=== PATIENT | male | born 1950 | race Caucasian/White ===

== ENCOUNTER 2020-07-02 14:25 | Emergency (ER) | payer MEDICARE, OTHER ==
[2020-07-02 14:34] VITALS: BP 166/97
--- NOTE | 2020-07-02 14:41 | ED Physician Documentation ---
PD HPI UPPER EXT INJURY - Stated complaint Stated Complaint: GLF - Chief complaint Chief Complaint: Ext Problem - History obtained from History obtained from: Patient (69-year-old gentleman had a trip and fall and landed on his right knee and right wrist. The knee is mildly painful but the wrist is more painful. No other injuries. Tetanus is up-to-date.) Review of Systems Constitutional: reports: Reviewed and negative Eyes: reports: Reviewed and negative Ears: reports: Reviewed and negative Nose: reports: Reviewed and negative Musculoskeletal: denies: Neck pain, Back pain Neurologic: denies: Headache, Head injury, LOC PD PAST MEDICAL HISTORY - Past Medical History Cardiovascular: High cholesterol Respiratory: None Endocrine/Autoimmune: None GI: None HEENT: None Psych: None Musculoskeletal: None, Chronic back pain Derm: None - Past Surgical History Past Surgical History: Yes Ortho: Rotator cuff repair - Present Medications Home Medications: Ambulatory Orders Medication Instructions Recorded Confirmed Simvastatin 5 mg PO DAILY 02/26/14 07/02/20 HYDROcod/ACETAM 5/325 [[place] 5/325] 1 - 2 tab PO Q6H PRN #15 tablet 07/02/20 Tamsulosin [Flomax] 0.4 mg PO DAILY 07/02/20 07/02/20 metFORMIN [Glucophage] 500 mg PO DAILY 07/02/20 07/02/20 - Allergies Allergies/Adverse Reactions: Allergies Allergy/AdvReac Type Severity Reaction Status Date / Time Penicillins Allergy Unknown Verified 07/02/20 14:30 - Social History Does the pt smoke?: No Smoking Status: Never smoker Does the pt drink ETOH?: Yes Does the pt have substance abuse?: No - Immunizations Immunizations are current?: Yes - POLST Patient has POLST: No PD ED PE NORMAL - Vitals Vital signs reviewed: Yes - General General: Alert and oriented X 3, No acute distress - HEENT HEENT: PERRL, EOMI - Neck Neck: No bony TTP - Extremities Extremities: Other (Right wrist is focally tender over the proximal fifth metacarpal and pisiform. No distal radial or ulnar tenderness. He has 2 scrapes over the right knee but absolutely no bony tenderness or limited range of motion or effusion.) - Neuro Neuro: Alert and oriented X 3, Normal speech Results - Vitals Vitals: Vital Signs - 24 hr 07/02/20 14:32 Temperature 36.6 C Heart Rate 70 Respiratory 18 Rate Blood Pressure 166/97 H O2 Saturation 99 Oxygen O2 Source Room air - Rads (name of study) R hand XR Radiology: EMP read contemporaneously (DONNA) PD MEDICAL DECISION MAKING - ED course ED course: I am prescribing a short course of short-acting opioid pain medication for this patient. I have reviewed the patients CONSULTING MANAGER and no concerning findings were noted. I have discussed that the opioids are for short term therapy only, and will not be refilled from the ED. Departure - Departure Disposition: 01 Home, Self Care Clinical Impression: Contusion of wrist, right Qualifiers: Encounter type: initial encounter Qualified Code(s): S60.211A - Contusion of right wrist, initial encounter Condition: Good Record reviewed to determine appropriate education?: Yes Instructions: ED Sprain Wrist Prescriptions: HYDROcod/ACETAM 5/325 [[place] 5/325] 1 - 2 tab PO Q6H PRN #15 tablet PRN Reason: Pain Comments: If no significant improvement in a week, recheck with your physician, repeat x- rays would be in order. Return for new or worsening symptoms. I am prescribing a short course of narcotic pain medication for you. These are potentially dangerous and addictive medications that should be used carefully. These medications may constipate you. Take an [id number] stool softener (docusate) twice daily with plenty of water while taking these medications. If you go 24 hours without a bowel movement, take [id number] miralax, per package instructions. Do not drink or drive while taking these medications. If you received narcotic or sedating medications while in the emergency department, do not drive for 24 hours. Store this medication in a safe, secure place and out of reach of children. It is a violation of federal law to give or sell this medication to another person or to use in a manner other than prescribed. The ED will not refill narcotic prescriptions, including prescriptions lost or stolen. To dispose of unwanted medications: 1. [facility] at [address] in [place] has a medication drop box. They accept prescription medications (in pill form) Sunday through Sunday 9:00 a.m. to 5:00 p.m. 2. The [facility] [employer] accepts prescription medications (in pill form only) for disposal year round. Call for more information. 3. Contact the [facility] for the next [facility] sponsored prescription drug collection event. , [phone], or [phone]; Note that many narcotic pain relievers also contain Tylenol/acetaminophen. Please ensure that your total dose of acetaminophen from all sources does not exceed 3 g (3000 mg) per day.
--- NOTE | 2020-07-02 15:15 | XRAY Report ---
PROCEDURE: Hand 3 View RT INDICATIONS: hand inj, ulnar carpals TECHNIQUE: 3 views of the hand(s) acquired. COMPARISON: None FINDINGS: Bones: No fractures or dislocations. No suspicious bony lesions. Soft tissues: No suspicious soft tissue calcifications. IMPRESSION: No fracture. No osseous lesion. If there are persistent symptoms or continued clinical concern for pa thology, then repeat plain film radiographs (7-10 days) or advanced imaging (CT, MR, bone scan) shoul d be considered for further evaluation. Reviewed by: Bethany Brunson MD, PhD on 07/02/2020 3:14 PM PDT Approved by: Bethany Brunson MD, PhD on 07/02/2020 3:14 PM PDT Station ID: [id number]
[2020-07-02] MEDS ORDERED: HYDROcod/ACETAM 5/325 MG TABLET PO STA (15:23)
== END 2020-07-02 15:30 | disposition home or self-care (01) ==
LOC: ED 14:25
DX: S60.211A Contusion of right wrist, initial encounter (principal); S80.211A Abrasion, right knee, initial encounter; W01.0XXA Fall on same level from slipping, tripping and stumbling without subsequent striking against object, initial encounter; Y92.242 Post office as the place of occurrence of the external cause
CPT/HCPCS: 73130; 99283; A9270

== ENCOUNTER 2021-04-06 11:30 | Outpatient (CLI) | payer MEDICARE, OTHER | END 2021-04-06 11:31 | disposition home or self-care (01) | LOC: LAB 11:30 | DX: C61 Malignant neoplasm of prostate (principal) | CPT/HCPCS: 36415; 84153 ==